=== PATIENT | female | born 1980 | race Caucasian/White ===

== ENCOUNTER 2022-03-02 20:28 | Emergency (ER) | payer MEDICAID ==
[~2022-03-02] VITALS: Ht 147.3 cm; Wt 45.4 kg
[2022-03-02 21:15] LABS: BILIRUBIN,URINE NEGATIVE (NEGATIVE); CLARITY,URINE CLEAR; COLOR,URINE YELLOW; GLUCOSE, URINE (UA) NEGATIVE (NEGATIVE); KETONES,URINE NEGATIVE (NEGATIVE); LEUKOCYTE ESTERASE ,URINE NEGATIVE (NEGATIVE); NITRITE,URINE POSITIVE (NEGATIVE); PROTEIN,URINE NEGATIVE (NEGATIVE)
[2022-03-02 21:20] LABS: BACTERIA,URINE LARGE /HPF; SQUAMOUS EPITHELIAL CELL,UR 0-2 /HPF; WBC,URINE RARE /HPF
[2022-03-02] MEDS ORDERED: ONDA4TAB11 PO (21:28)
[2022-03-02] MEDS ORDERED: CEFD300C3 PO (21:28)
[2022-03-02] MEDS ORDERED: ONDANSETRON 4 MG (ZOFRAN) ORAL DISSOLVE TAB PO STA (21:29)
--- NOTE | 2022-03-02 21:29 | ED GI ---
General Chief Complaint: Abdominal/GI Problems Stated Complaint: ABD PAIN/CRAMPING Source of Information: Patient Exam Limitations: No Limitations History of Present Illness Date Seen by Provider: Mar 02, 2022 Time Seen by Provider: 20:31 Initial Comments 41-year-old female with no pertinent past medical history coming in due to suprapubic discomfort, dysuria, and foul-smelling urine.'s been going on for roughly 1 week. She says she has never had anything like this happen before. The pain is mild, intermittent, worse with urination. Better when she took ibuprofen earlier. She is otherwise denying any fever, chest pain, shortness of breath, diarrhea, vomiting, or any other concerns Allergies and Home Medications Allergies Coded Allergies: diphenhydramine (Unverified Adverse Reaction, Unknown, 03/02/22) Patient Home Medication List Home Medication List Reviewed: Yes Cefdinir (Cefdinir) 300 Mg Capsule, 300 MG PO BID Prescribed by: MACK WORRELL on 03/02/222127 Ondansetron (Ondansetron Odt) 4 Mg Tab.rapdis, 4 MG PO Q6H PRN for NAUSEA-1ST LINE Prescribed by: MACK WORRELL on 03/02/222127 Review of Systems Review of Systems Constitutional: No chills EENTM: No Blurred Vision Respiratory: Denies Cough Gastrointestinal: Abdominal Pain Genitourinary: Burning Musculoskeletal: no symptoms reported Skin: no symptoms reported Psychiatric/Neurological: No Symptoms Reported Endocrine: No Symptoms Reported Hematologic/Lymphatic: No Symptoms Reported All Other Systems Reviewed Negative Unless Noted: Yes Past Czycmzs-Bfjyqo-Bkncco Hx Patient Social History Alcohol Use?: Yes Past Medical History Surgeries: No Physical Exam Vital Signs Capillary Refill : Height/Weight/BMI Height: '" Weight: lbs. oz. kg; BMI Method: General Appearance: WD/WN, no apparent distress HEENT: PERRL/EOMI, normal ENT inspection, pharynx normal Neck: non-tender, full range of motion, supple, normal inspection Respiratory: chest non-tender, lungs clear, normal breath sounds, no respi ratory distress, no accessory muscle use Cardiovascular: regular rate, rhythm, no edema, no murmur Gastrointestinal: normal bowel sounds, non tender, soft; No distended, No guarding, No rebound Extremities: normal range of motion, non-tender, normal inspection, no pedal edema, no calf tenderness, normal capillary refill Back: normal inspection, no CVA tenderness Neurologic/Psychiatric: no motor/sensory deficits, alert, normal mood/affect Skin: normal color, warm/dry Lymphatic: no adenopathy Progress/Results/Core Measures Results/Orders Lab Results Laboratory Tests Test 03/02/22 20:51 Range/Units Urine Color YELLOW Urine Clarity CLEAR Urine pH 6.0 5-9 Urine Specific Anderson <=1.005 1.016-1.022 Urine Protein NEGATIVE NEGATIVE Urine Glucose (UA) NEGATIVE NEGATIVE Urine Ketones NEGATIVE NEGATIVE Urine Nitrite POSITIVE H NEGATIVE Urine Bilirubin NEGATIVE NEGATIVE Urine Urobilinogen 0.2 < = 1.0 MG/DL Urine Leukocyte Esterase NEGATIVE NEGATIVE Urine RBC (Auto) NEGATIVE NEGATIVE Urine RBC NONE /HPF Urine WBC RARE /HPF Urine Squamous Epithelial Cells 0-2 /HPF Urine Crystals NONE /LPF Urine Bacteria LARGE H /HPF Urine Casts NONE /LPF Urine Mucus NEGATIVE /LPF Urine Culture Indicated YES My Orders Orders - MACK WORRELL MD Ua Culture If Indicated (03/02/22 21:07) Urine Bedside (03/02/22 21:07) Urine Culture (03/02/22 20:51) Progress Progress Note : Progress Note 41-year-old female coming in due to dysuria, suprapubic discomfort, and possible urine. ABCs were intact and vitals were stable on presentation. Physical exam reassuring including no significant abdominal tenderness. Labs significant for negative test and urinalysis concerning for infection. While her symptoms does fit a cystitis type picture. We will send her home with some antibiotics. She was discharged in stable condition with strict return precautions. Repeat abdominal exam prior to discharge again was reassuring. Departure Impression Primary Impression: Cystitis Disposition: HOME, SELF-CARE Condition: Stable Departure-Patient Inst. Decision time for Depature: 21:[address]: [facility] [place],LOCAL PHYSICIAN (PCP) Primary Care Physician Patient Instructions: Urinary Tract Infections in Adults Add. Discharge Instructions: You have a urinary tract infection going back to your bladder which is what is causing your abdominal pain and symptoms. He will take antibiotics for the next week. You can take ibuprofen and/or Tylenol for pain. Do not take Tylenol if you are drinking alcohol however. If you are not feeling a lot better in the next 5 days then call [facility] to schedule an appointment. You can always come back to the ER if you have concerns. Scripts Ondansetron (Ondansetron Odt) 4 Mg Tab.rapdis 4 MG PO Q6H PRN for NAUSEA-1ST LINE for 5 Days, #20 TAB Prov: MACK WORRELL MD 03/02/22 Cefdinir (Cefdinir) 300 Mg Capsule 300 MG PO BID for 7 Days, #14 CAP 0 Refills Prov: MACK WORRELL MD 03/02/22 MACK WORRELL MD Mar 02, 2022 21:29
[2022-03-02] MEDS ORDERED: HYOSCYAMINE 0.125 MG (LEVSIN) TAB PO ONE (21:30)
[2022-03-02] MEDS ORDERED: CEFDINIR 300 MG (OMNICEF) CAP PO ONE (21:30)
[2022-03-02 21:37] VITALS: BP 109/78
== END 2022-03-02 21:37 | disposition home or self-care (01) ==
LOC: ER FS 20:29
DX: N30.90 Cystitis, unspecified without hematuria (principal); Z32.02 Encounter for pregnancy test, result negative
CPT/HCPCS: 81000; 84703; 87088; 99283

== ENCOUNTER 2022-03-25 04:14 | Emergency (ER) | payer MEDICAID ==
[~2022-03-25 04:14] MED LIST: CEFD300C3 PO; ONDA4TAB11 PO
--- NOTE | 2022-03-25 04:47 | ED Psychosocial ---
General Chief Complaint: Overdose Stated Complaint: POSS OVERDOSE Nursing Triage Note: Pt brought in by after taking more Olanzapine than prescribed. According to her , there were 12 pills in the bottle before bed last night and only 5 left in the bottle now. Pt states she took the extra pills throughout the night because she was unable to sleep and thought the medicine would help her. Source: patient, spouse Exam Limitations: no limitations (MACK PRADO MD) History of Present Illness Date Seen by Provider: Mar 25, 2022 Time Seen by Provider: 04:21 Initial Comments 41-year-old female that was recently seen in the emergency department for vague somatic issues as well as suicidal thoughts coming in due to potential overdose. She filled a prescription for olanzapine 5 mg on the night of March 23. She said that she has been having difficulty sleeping so she been taking roughly 2 at a time every hour she feels like. There are 5 olanzepine left meaning there are 25 missing over the past 24 hours roughly. She finally alerted her si gnificant other that she was concerned that she could have potentially overdosed. She has had her intention was never to harm herself, and she thought it would be okay to take this to try to sleep. She says she has no suicidal thoughts at this time, and does not want to be screened for any psychiatric illness. She says it was completely accidental. She says she did have some al cohol last night, about a half pint of liquor. It is very typical for her to drink half to 1 pint and a day. She said she had 4 aspirin over the course of the past 24 hours for typical chronic pain. She says she is taken no other medications. The only symptom she is reporting is she finally feels tired, however she is not sure if that is just because it is 4 in the morning. (MACK PRADO MD) Allergies and Home Medications Allergies Coded Allergies: diphenhydramine (Unverified Adverse Reaction, Unknown, 03/02/22) Patient Home Medication List Home Medication List Reviewed: Yes (MACK PRADO MD) Cefdinir (Cefdinir) 300 Mg Capsule, 300 MG PO BID Prescribed by: MACK PRADO on 03/02/222127 Ondansetron (Ondansetron Odt) 4 Mg Tab.rapdis, 4 MG PO Q6H PRN for NAUSEA-1ST LINE Prescribed by: MACK PRADO on 03/02/222127 Review of Systems Constitutional: No chills, No fever EENTM: No blurred vision Respiratory: no symptoms reported Cardiovascular: no symptoms reported Gastrointestinal: no symptoms reported Genitourinary: no symptoms reported Musculoskeletal: no symptoms reported Skin: no symptoms reported Psychiatric/Neurological: Depressed (MACK PRADO MD) All Other Systems Reviewed Negative Unless Noted: Yes (MACK PRADO MD) Past Hxabbeb-Rwejyh-Ihldka Hx Patient Social History Tobacco Use?: Yes Tobacco type used: Cigarettes Smoking Status: Current Everyday Smoker Use of E-Cig and/or Vaping dev: No Substance use?: Yes Substance type: Marijuana Alcohol Use?: No Pt feels they are or have been: No (MACK PRADO MD) Immunizations Up To Date First/Initial COVID19 Vaccinat: UNVACCINATED Second COVID19 Vaccination Efe: UNVACCINATED (MACK PRADO MD) Past Medical History Surgery/Hospitalization HX: HTN, Ovarian cysts Surgeries: No (MACK PRADO MD) Physical Exam Vital Signs - First Documented 03/25/22 04:19 Pulse 86 Resp 16 B/P (MAP) 137/99 (112) Pulse Ox 100 O2 Delivery Room Air (CHHAYA FARFAN MD) Capillary Refill : Less Than 3 Seconds (MACK PRADO MD) Height, Weight, BMI Height: '" Weight: lbs. oz. 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0 g/dL Hematocrit 35 35-52 % Mean Corpuscular Volume 99 80-99 fL Mean Corpuscular Hemoglobin 33 25-34 pg Mean Corpuscular Hemoglobin Concent 33 32-36 g/dL Red Cell Distribution Width 14.0 10.0-14.5 % Platelet Count 208 130-400 10^3/uL Mean Platelet Volume 11.0 9.0-12.2 fL Immature Granulocyte % (Auto) 1 % Neutrophils (%) (Auto) 57 42-75 % Lymphocytes (%) (Auto) 24 12-44 % Monocytes (%) (Auto) 12 0-12 % Eosinophils (%) (Auto) 6 0-10 % Basophils (%) (Auto) 1 0-10 % Neutrophils # (Auto) 3.3 1.8-7.8 10^3/uL Lymphocytes # (Auto) 1.4 1.0-4.0 10^3/uL Monocytes # (Auto) 0.7 0.0-1.0 10^3/uL Eosinophils # (Auto) 0.3 0.0-0.3 10^3/uL Basophils # (Auto) 0.1 0.0-0.1 10^3/uL Immature Granulocyte # (Auto) 0.0 0.0-0.1 10^3/uL Sodium Level 141 135-145 MMOL/L Potassium Level 4.7 3.6-5.0 MMOL/L Chloride Level 104 98-107 MMOL/L Carbon Dioxide Level 25 21-32 MMOL/L Anion Gap 12 5-14 MMOL/L Blood Urea Nitrogen 12 7-18 MG/DL Creatinine 0.56 L 0.60-1.30 MG/DL Estimat Glomerular Filtration Rate 118 BUN/Creatinine Ratio 21 Glucose Level 88 70-105 MG/DL Calcium Level 9.7 8.5-10.1 MG/DL Corrected Calcium 9.5 8.5-10.1 MG/DL Total Bilirubin 0.2 0.1-1.0 MG/DL Aspartate Amino Transf (AST/SGOT) 46 H 5-34 U/L Alanine Aminotransferase (ALT/SGPT) 30 0-55 U/L Alkaline Phosphatase 60 40-136 U/L Total Protein 6.9 6.4-8.2 GM/DL Albumin 4.2 3.2-4.5 GM/DL Serum Test, Qualitative NEGATIVE NEGATIVE Salicylates Level 4.3 L 5.0-20.0 MG/DL Acetaminophen Level < 10 L 10-30 UG/ML Serum Alcohol < 10 <10 MG/DL (CHHAYA FARFAN MD) Vital Signs/I&O 03/25/22 04:19 Pulse 86 Resp 16 B/P (MAP) 137/99 (112) Pulse Ox 100 O2 Delivery Room Air (CHHAYA FARFAN MD) Blood Pressure Mean: 112 Progress Progress Note : Progress Note 41-year-old female with above history coming in after potential overdose with olanzapine. She is taking at least 25 pills that of 5 mg each over the course of 24 hours. She believes she is taking roughly 7 of them over the past 12 hours. Other than her being sleepy, no symptoms. She is alert to voice alone and carries a conversation without difficulty. Neuro exam normal including no clonus and normal reflexes. I contacted poison control and they recommend watching her for roughly 6 hours. If she is alert at 6 hours she can go home if we have no other concerns. They recommend 1 EKG and then just being on the monitor at that point. Initial EKG without any concerns. An IV was placed and basic labs were obtained. They were essentially unremarkable. Detectable but not concerning aspirin level given she took a few. Care will be turned over to the oncoming physician with roughly 3 more hours of monitoring her. She has had no difficulty as of yet. (MACK PRADO MD) Progress Note #1: Time: 07:00 Progress Note I assumed care of the patient from Dr. Prado at shift change. Patient will be monitored until roughly 10 AM and then provided she is still stable and has no other concerns will discharge to home. Stressed importance of taking medi cine only as prescribed and if she feels like she needs additional medicine or stronger medicine following up with her regular provider about that. Progress Note #2: Time: 09:45 Progress Note Patient has been resting and remained stable. She continues to show a normal sinus rhythm on the cardiac telemetry monitoring. Her vital signs otherwise have remained stable. She has awaken to voice easily and interactive with staff and significant other at the bedside. She continues to voice no concerns of self-harm. Stressed importance of taking medications only as prescribed. Encouraged to follow-up with her regular provider about her medications and any adjustments that might be deemed necessary (CHHAYA FARFAN MD) Initial ECG Impression Date: Mar 25, 2022 Initial ECG Impression Time: 04:21 Initial ECG Rate: 81 Initial ECG Rhythm: Normal Sinus Comment Narrow QRS, normal axis, no significant ST changes or T wave abnormalities, QTC 450 (MACK PRADO MD) Departure Impression Primary Impression: Accidental overdose Qualified Codes: T50.901A - Poisoning by unspecified drugs, medicaments and biological substances, accidental (unintentional), initial encounter Disposition: 01 HOME, SELF-CARE Condition: Stable Departure-Patient Inst. Decision time for Depature: 09:45 (CHHAYA FARFAN MD) Referrals: NO,LOCAL PHYSICIAN (PCP) Primary Care Physician [facility] Patient Instructions: Accidental Overdose (DC), Why Taking Your Medicine or Drug as Ordered Is Important Add. Discharge Instructions: Please only take the olanzapine as prescribed. You should only be taking 1 per night. If you feel like you need a stronger dose or a different medicine, call your doctor that prescribed it. If you have any thoughts to hurt yourself or hurt anyone else please either call 911 or come back to the ER. Work/School Note: Work Release Form Date Seen in the Emergency Department: Mar 25, 2022 Return to Work: Mar 26, 2022 Restrictions: No Restrictions MACK PRADO MD Mar 25, 2022 04:47 CHHAYA FARFAN MD Mar 25, 2022 09:46
[2022-03-25 05:35] LABS: BASOPHILS # (AUTO) 0.1 10^3/uL (0.0-0.1); BASOPHILS % (AUTO) 1 % (0-10); EOSINOPHILS # (AUTO) 0.3 10^3/uL (0.0-0.3); EOSINOPHILS % (AUTO) 6 % (0-10); HEMATOCRIT 35 % (35-52); HEMOGLOBIN 11.7 g/dL (11.5-16.0); LYMPHOCYTES # (AUTO) 1.4 10^3/uL (1.0-4.0); LYMPHOCYTES % (AUTO) 24 % (12-44); MEAN CORPUSCULAR HEMOGLOBIN 33 pg (25-34); MEAN CORPUSCULAR HGB CONC 33 g/dL (32-36); MEAN CORPUSCULAR VOLUME 99 fL (80-99); MONOCYTES # (AUTO) 0.7 10^3/uL (0.0-1.0); MONOCYTES % (AUTO) 12 % (0-12); NEUTROPHILS # (AUTO) 3.3 10^3/uL (1.8-7.8); NEUTROPHILS % (AUTO) 57 % (42-75); PLATELET COUNT 208 10^3/uL (130-400); WHITE BLOOD COUNT 5.8 10^3/uL (4.3-11.0)
[2022-03-25 05:46] LABS: POTASSIUM 4.7 MMOL/L (3.6-5.0); SODIUM 141 MMOL/L (135-145)
[2022-03-25 05:47] LABS: CHLORIDE 104 MMOL/L (98-107)
[2022-03-25 05:53] LABS: BILIRUBIN,TOTAL 0.2 MG/DL (0.1-1.0); BUN/CREATININE RATIO 21; CALCIUM 9.7 MG/DL (8.5-10.1); CARBON DIOXIDE 25 MMOL/L (21-32); CREATININE SERUM 0.56 MG/DL (0.60-1.30); GFR ESTIMATED 118; GLUCOSE 88 MG/DL (70-105)
[2022-03-25 05:54] LABS: ACETAMINOPHEN < 10 UG/ML (10-30); ALANINE AMINOTRANSFERASE 30 U/L (0-55); ALBUMIN 4.2 GM/DL (3.2-4.5); ALKALINE PHOSPHATASE 60 U/L (40-136); SALICYLATE 4.3 MG/DL (5.0-20.0); TOTAL PROTEIN 6.9 GM/DL (6.4-8.2)
[2022-03-25 10:06] VITALS: BP 126/71
== END 2022-03-25 10:06 | disposition home or self-care (01) ==
LOC: EDUNIT# 04:14 → ER FS 04:16
DX: T43.591A Poisoning by other antipsychotics and neuroleptics, accidental (unintentional), initial encounter (principal); F17.210 Nicotine dependence, cigarettes, uncomplicated
CPT/HCPCS: 36415; 80053; 84703; 85025; 93005; 93041; 99284; G0480 ×3; 80320; 80329

== ENCOUNTER 2022-08-11 18:37 | Inpatient (IN) | payer MEDICAID ==
[~2022-08-11] VITALS: Ht 157 cm; Wt 50.4 kg
[2022-08-11] MEDS ORDERED: LACTATED RINGERS 1,000 ML IV ONE ×3 (18:45→19:00)
[2022-08-11] MEDS ORDERED: MIDAZOLAM 10 MG/2 ML (VERSED) VIAL ONE (18:45)
[2022-08-11] MEDS ORDERED: MIDAZOLAM 5 MG/5 ML (VERSED) VIAL IVP ONE (18:45)
[2022-08-11] MEDS ORDERED: MIDAZOLAM 10 MG/2 ML (VERSED) VIAL IVP ONE ×2 (19:00→19:30)
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
[2022-08-11 19:07] LABS: BASOPHILS % (AUTO) 0 % (0-10); EOSINOPHILS % (AUTO) 0 % (0-10); HEMATOCRIT 30 % (35-52); HEMOGLOBIN 9.8 g/dL (11.5-16.0); LYMPHOCYTES # (AUTO) 1.1 10^3/uL (1.0-4.0); LYMPHOCYTES % (AUTO) 13 % (12-44); MEAN CORPUSCULAR HEMOGLOBIN 32 pg (25-34); MEAN CORPUSCULAR HGB CONC 33 g/dL (32-36); MEAN CORPUSCULAR VOLUME 96 fL (80-99); MEAN PLATELET VOLUME 10.1 fL (9.0-12.2); MONOCYTES # (AUTO) 0.5 10^3/uL (0.0-1.0); MONOCYTES % (AUTO) 6 % (0-12); NEUTROPHILS # (AUTO) 6.9 10^3/uL (1.8-7.8); NEUTROPHILS % (AUTO) 80 % (42-75); PLATELET COUNT 154 10^3/uL (130-400); WHITE BLOOD COUNT 8.6 10^3/uL (4.3-11.0)
[2022-08-11 19:12] LABS: BILIRUBIN,URINE NEGATIVE (NEGATIVE); CLARITY,URINE CLEAR; COLOR,URINE YELLOW; GLUCOSE, URINE (UA) TRACE (NEGATIVE); HCG,QUALITATIVE URINE NEGATIVE (NEGATIVE); KETONES,URINE NEGATIVE (NEGATIVE); LEUKOCYTE ESTERASE ,URINE NEGATIVE (NEGATIVE); NITRITE,URINE POSITIVE (NEGATIVE); PH,URINE 5.5 (5-9); PROTEIN,URINE NEGATIVE (NEGATIVE)
[2022-08-11] MEDS ORDERED: WATER (STERILE) FOR INJ 10 ML BTL INJ SCH (19:15)
[2022-08-11] MEDS ORDERED: ZIPRASIDONE 20 MG INJ (GEODON) VIAL IM ONE (19:15)
[2022-08-11 19:20] LABS: BACTERIA,URINE TRACE /HPF; HYALINE CASTS, URINE 0-2 /LPF; SQUAMOUS EPITHELIAL CELL,UR RARE /HPF
[2022-08-11 19:24] LABS: AMPHETAMINE SCREEN, URINE NEGATIVE (NEGATIVE); BARBITURATE SCREEN URINE NEGATIVE (NEGATIVE); BENZODIAZEPINES SCREEN URINE POSITIVE (NEGATIVE); CANNABINOID SCREEN, URINE POSITIVE (NEGATIVE); COCAINE SCREEN URINE NEGATIVE (NEGATIVE); METHADONE STAT NEGATIVE (NEGATIVE); OPIATE SCREEN URINE NEGATIVE (NEGATIVE); OXYCODONE STAT NEGATIVE (NEGATIVE); PROPOXYPHENE STAT NEGATIVE (NEGATIVE); TRICYCLIC ANTIDEPRESSANTS SCRE NEGATIVE (NEGATIVE)
[2022-08-11 19:26] LABS: BUN/CREATININE RATIO 10; CALCIUM 7.4 MG/DL (8.5-10.1); CARBON DIOXIDE 14 MMOL/L (21-32); CHLORIDE 104 MMOL/L (98-107); CREATININE SERUM 0.58 MG/DL (0.60-1.30); GFR ESTIMATED 117; GLUCOSE 190 MG/DL (70-105); POTASSIUM 3.5 MMOL/L (3.6-5.0); SODIUM 135 MMOL/L (135-145)
[2022-08-11 19:27] LABS: ACETAMINOPHEN < 10 UG/ML (10-30); ALANINE AMINOTRANSFERASE 9 U/L (0-55); ALBUMIN 3.4 GM/DL (3.2-4.5); ALKALINE PHOSPHATASE 50 U/L (40-136); BILIRUBIN,TOTAL 0.2 MG/DL (0.1-1.0); SALICYLATE < 0.3 MG/DL (5.0-20.0); TOTAL PROTEIN 5.7 GM/DL (6.4-8.2)
[2022-08-11] MEDS ORDERED: POTASSIUM CL 10MEQ/50ML IVPB 50 ML IV ONE (19:45)
[2022-08-11] MEDS ORDERED: MAGNESIUM 1 GM/100 ML IVPB 100 ML IV ONE (19:45)
[2022-08-12] MEDS ORDERED: ZIPRASIDONE 20 MG INJ (GEODON) VIAL IM PRN (01:00)
[2022-08-12] MEDS ORDERED: DexMEDEtomidine 250 ML DRIP 250 ML IV SCH (01:00)
[2022-08-12] MEDS ORDERED: ONDANSETRON 4 MG/2 ML (SDV) Z0FRAN IV PRN ×2 (01:00→01:15)
[2022-08-12] MEDS ORDERED: LORazepam 1 MG (ATIVAN) TAB PO PRN (01:15)
[2022-08-12] MEDS ORDERED: 1/2 NS IV SOLUTION 1,000 ML IV PRN (01:15)
[2022-08-12] MEDS ORDERED: ANTACID SUSP 30 ML UDC (MYLANTA) PO PRN (01:15)
[2022-08-12] MEDS ORDERED: SENNA W/DOCUSATE (SENOKOT S) TABLET PO PRN (01:15)
[2022-08-12] MEDS ORDERED: LORazepam INJ 2 MG/ML (ATIVAN) VIAL IM/IV PRN (01:15)
[2022-08-12] MEDS ORDERED: D5 1/2 NS 1000 ML IV SOLUTION 1,000 ML IV PRN (01:15)
[2022-08-12] MEDS ORDERED: ONDANSETRON 4 MG (ZOFRAN) ORAL DISSOLVE TAB SL PRN (01:15)
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
[2022-08-12] MEDS: LACTATED RINGERS 1,000 ML IV SCH ×3 (01:29→18:57)
[2022-08-12] MEDS: inSUlin ASPART (NovoLOG) 1 UNIT/0.01 ML (CHARGE PER UNIT) SC SCH ×4 (01:30→18:57)
[2022-08-12] MEDS: LORazepam INJ 2 MG/ML (ATIVAN) VIAL IV PRN ×8 (03:20→20:27)
[2022-08-12 04:42] LABS: BASOPHILS % (AUTO) 1 % (0-10); EOSINOPHILS # (AUTO) 0.1 10^3/uL (0.0-0.3); EOSINOPHILS % (AUTO) 1 % (0-10); HEMATOCRIT 29 % (35-52); HEMOGLOBIN 9.5 g/dL (11.5-16.0); LYMPHOCYTES # (AUTO) 1.6 10^3/uL (1.0-4.0); LYMPHOCYTES % (AUTO) 28 % (12-44); MEAN CORPUSCULAR HEMOGLOBIN 31 pg (25-34); MEAN CORPUSCULAR HGB CONC 33 g/dL (32-36); MEAN CORPUSCULAR VOLUME 94 fL (80-99); MEAN PLATELET VOLUME 9.7 fL (9.0-12.2); MONOCYTES # (AUTO) 0.5 10^3/uL (0.0-1.0); MONOCYTES % (AUTO) 8 % (0-12); NEUTROPHILS # (AUTO) 3.5 10^3/uL (1.8-7.8); NEUTROPHILS % (AUTO) 62 % (42-75); PLATELET COUNT 151 10^3/uL (130-400); WHITE BLOOD COUNT 5.7 10^3/uL (4.3-11.0)
[2022-08-12 04:56] LABS: ALBUMIN 3.1 GM/DL (3.2-4.5); POTASSIUM 3.5 MMOL/L (3.6-5.0)
[2022-08-12 04:59] LABS: TOTAL PROTEIN 5.3 GM/DL (6.4-8.2)
[2022-08-12 05:00] LABS: BILIRUBIN,TOTAL 0.6 MG/DL (0.1-1.0)
[2022-08-12 05:02] LABS: CREATININE SERUM 0.57 MG/DL (0.60-1.30); PHOSPHORUS 1.8 MG/DL (2.3-4.7)
[2022-08-12 05:05] LABS: MAGNESIUM 1.7 MG/DL (1.6-2.4)
[2022-08-12] MEDS ORDERED: NS IV 500 ML 500 ML IV PRN (05:30)
[2022-08-12] MEDS: KCL 20 MEQ TAB (K-DUR) PO SCH (06:04)
[2022-08-12] MEDS: MAGNESIUM 1 GM/100 ML IVPB 100 ML IV SCH (06:06)
[2022-08-12] MEDS: POTASSIUM CL 10MEQ/50ML IVPB 50 ML IV SCH (06:06)
[2022-08-12] MEDS: THIAMINE INJECTION 100 MG, FOLIC ACID INJECTION 1 MG, MAGNESIUM SULFATE 2 GM, VITAMIN M... IV SCH ×5 (08:47)
[2022-08-12] MEDS ORDERED: HYDR50TA76 PO (13:02)
[2022-08-12] MEDS ORDERED: FLUO20CA48 PO (13:02)
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
[2022-08-13 05:12] LABS: BASOPHILS % (AUTO) 1 % (0-10); EOSINOPHILS # (AUTO) 0.1 10^3/uL (0.0-0.3); EOSINOPHILS % (AUTO) 1 % (0-10); HEMATOCRIT 28 % (35-52); HEMOGLOBIN 9.1 g/dL (11.5-16.0); LYMPHOCYTES # (AUTO) 1.9 10^3/uL (1.0-4.0); LYMPHOCYTES % (AUTO) 31 % (12-44); MEAN CORPUSCULAR HEMOGLOBIN 31 pg (25-34); MEAN CORPUSCULAR HGB CONC 32 g/dL (32-36); MEAN CORPUSCULAR VOLUME 96 fL (80-99); MEAN PLATELET VOLUME 10.2 fL (9.0-12.2); MONOCYTES # (AUTO) 0.5 10^3/uL (0.0-1.0); MONOCYTES % (AUTO) 8 % (0-12); NEUTROPHILS # (AUTO) 3.6 10^3/uL (1.8-7.8); NEUTROPHILS % (AUTO) 59 % (42-75); PLATELET COUNT 120 10^3/uL (130-400); WHITE BLOOD COUNT 6.1 10^3/uL (4.3-11.0)
[2022-08-13 05:21] LABS: ALBUMIN 2.9 GM/DL (3.2-4.5)
[2022-08-13 05:22] LABS: POTASSIUM 4.2 MMOL/L (3.6-5.0)
[2022-08-13 05:23] LABS: CALCIUM 8.2 MG/DL (8.5-10.1)
[2022-08-13 05:24] LABS: TOTAL PROTEIN 5.1 GM/DL (6.4-8.2)
[2022-08-13 05:26] LABS: BILIRUBIN,TOTAL 0.4 MG/DL (0.1-1.0)
[2022-08-13 05:27] LABS: PHOSPHORUS 2.7 MG/DL (2.3-4.7)
[2022-08-13 05:28] LABS: CREATININE SERUM 0.68 MG/DL (0.60-1.30)
[2022-08-13 05:30] LABS: MAGNESIUM 1.8 MG/DL (1.6-2.4)
[2022-08-13] MEDS: LACTATED RINGERS 1,000 ML IV SCH ×2 (06:05→06:13)
[2022-08-13] MEDS: inSUlin ASPART (NovoLOG) 1 UNIT/0.01 ML (CHARGE PER UNIT) SC SCH ×4 (06:06→16:20)
[2022-08-13] MEDS: POTASSIUM CL 10MEQ/50ML IVPB 50 ML IV SCH (06:07)
[2022-08-13] MEDS: MAGNESIUM 1 GM/100 ML IVPB 100 ML IV SCH (06:08)
[2022-08-13] MEDS: KCL 20 MEQ TAB (K-DUR) PO SCH (06:12)
[2022-08-13] MEDS: NITROFURANTOIN 100 MG (MACROBID) CAPSULE PO SCH ×2 (09:05→20:22)
[2022-08-13] MEDS: NICOTINE 21 MG (NICODERM) PATCH TD SCH (09:05)
--- NOTE | 2022-08-13 09:40 | Tele-ICU Progress Note ---
Subjective Date Seen by a Provider: Aug 13, 2022 Time Seen by a Provider: 09:40 Subjective/Events-last exam (Tele-ICU Physician , Progress Note ) Available chart/ vitals / labs / Images reviewed Video assessment done using teleICU camera, rest of exam as per RN Discussed with RN Events overnight : Afebrile hemodynamically stable Respiratory - ra I/O = + Drips: Pressors- no A/P Acute psychosis Schizophrenia -Antipsychotics as per psych / pcp Atarax overdose - stable Alcohol abuse -No evidence of withdrawalm, cont vitanmina UTI - anx po thrombocytopenia - mild - was not hiveb heparin - follow as per PCP Anemia - stable - w/up as per PCP Lines : , (Central Line Necessity Reviewed) Landis: OG: Nutrition: Analgesia: Anxiety/ delirium VTE Prophylaxis: ambulate Stress Ulcer Prophylaxis: po Plans in collaboration with bedside consultants and IM MDs. Discussed with RN to reach out if any questions or concerns A total of 10 minutes of critical care time was devoted to this patient today, required to treat and/or prevent further deterioration of critical care conditi on ( as above ) . Sepsis Event Evaluation Height, Weight, BMI Height: '" Weight: lbs. oz. kg; 20.44 BMI Method: Exam Exam Patient acknowledged, consented, and participated in this virtual visit which was conducted using real time audio/video Vital Signs Date Time Temp Pulse Resp B/P (MAP) Pulse Ox O2 Delivery O2 Flow Rate FiO2 08/13/22 09:00 53 18 144/60 (88) 95 Room Air 08/13/22 08:19 98 Room Air 08/13/22 08:00 36.7 08/13/22 08:00 73 6 111/82 (92) 100 Room Air 08/13/22 07:00 67 08/13/22 07:00 86 11 113/70 (84) 100 Room Air 08/13/22 06:00 77 12 104/65 (78) 97 Room Air 08/13/22 05:00 73 19 107/77 (87) 100 Room Air 08/13/22 04:00 Room Air 08/13/22 04:00 79 19 103/66 (78) 99 Room Air 08/13/22 03:00 94 12 100/61 (74) 97 Room Air 08/13/22 02:00 77 17 118/79 (92) 100 Room Air 08/13/22 01:00 83 08/13/22 01:00 83 17 99/66 (77) 98 Room Air 08/13/22 00:00 Room Air 08/13/22 00:00 81 12 107/73 (84) 99 Room Air 08/12/22 23:00 83 18 96/62 (73) 100 Room Air 08/12/22 22:00 84 12 96/63 (74) 99 Room Air 08/12/22 21:00 90 12 91/60 (70) 98 Room Air 08/12/22 20:00 Room Air 08/12/22 20:00 109 16 122/66 (84) 100 Room Air 08/12/22 19:59 36.8 08/12/22 19:00 107 08/12/22 19:00 107 14 124/96 (105) 100 Room Air 08/12/22 18:00 111 17 129/82 (98) 92 Room Air 08/12/22 17:00 84 11 117/84 (95) 99 Room Air 08/12/22 16:00 35.9 08/12/22 16:00 78 10 101/62 (75) Room Air 08/12/22 15:00 92 15 84/52 (63) Room Air 08/12/22 14:00 103 13 110/71 (84) 99 Room Air 08/12/22 13:00 102 9 111/72 (85) 99 Room Air 08/12/22 12:17 100 08/12/22 12:00 36.8 08/12/22 12:00 101 7 118/80 (93) 98 Room Air 08/12/22 11:00 101 8 124/77 (93) 99 Room Air 08/12/22 10:00 101 11 107/71 (83) 99 Room Air I & O 08/13/22 07:00 Intake Total 2300 ml Output Total 2600 ml Balance -300 ml Height & Weight Height: '" Weight: lbs. oz. kg; 20.44 BMI Method: General Appearance: No Apparent Distress, WD/WN, Anxious Respiratory: Lungs Clear, No Respiratory Distress Cardiovascular: Regular Rate, Rhythm, No Murmur Capillary Refill: Less Than 3 Seconds Peripheral Pulses: 2+ Radial Pulses (R), 2+ Radial Pulses (L) Gastrointestinal: normal bowel sounds, non tender, soft, no organomegaly Extremity: Normal Inspection, No Pedal Edema Neurologic/Psychiatric: Alert, Disoriented, Other (paranoid delusions) Skin: Normal Color, Warm/Dry Results Lab Laboratory Tests 08/11/22 18:44 08/12/22 04:15 08/13/22 04:50 Assessment/Plan Assessment/Plan 1 MARITZA ROJO MD Aug 13, 2022 09:40
[2022-08-13] MEDS: THIAMINE INJECTION 100 MG, FOLIC ACID INJECTION 1 MG, MAGNESIUM SULFATE 2 GM, VITAMIN M... IV SCH ×5 (09:41)
--- NOTE | 2022-08-13 16:00 | Progress Note - Hospitalist ---
Subjective HPI/CC On Admission Date Seen by Provider: Aug 13, 2022 Time Seen by Provider: 09:45 Cassidy Martino is a 41 year old female with history of schizophrenia who presented with psychosis. She says she has a "bug in my ear". She says it is telling her things. It is not commanding her to do things though. She also thinks the [place] is trying to take her family to [place]. She thinks someone is going to force them into pornography. She has no pain. She is not short of breath. She is otherwise in her normal state of health. She tried to harm her and the EMS officers. She also may have overdosed on Atarax. Subjective/Events-last exam She continues to have paranoid delusions. She denies pain. She has no other complaints. Objective Exam Vital Signs Vital Signs Date Time Temp Pulse Resp B/P (MAP) Pulse Ox O2 Delivery O2 Flow Rate FiO2 08/13/22 12:25 72 16 119/89 (99) 100 Room Air 08/13/22 11:05 36.6 Capillary Refill : Less Than 3 Seconds General Appearance: No Apparent Distress, WD/WN Respiratory: No Accessory Muscle Use, No Respiratory Distress Cardiovascular: Regular Rate, Rhythm, No Edema Gastrointestinal: No Distended Neurologic/Psychiatric: Alert, Disoriented, Other (paranoid delusions, auditory hallucinations) Skin: Normal Color, Warm/Dry Results/Procedures Lab Laboratory Tests 08/13/22 04:50 Patient resulted labs reviewed. Assessment/Plan Assessment and Plan Assess & Plan/Chief Complaint Acute psychosis Schizophrenia Antipsychotics as needed Resume home meds SW following Planning for transfer involuntary to inpatient psychiatry once bed available Atarax overdose Alcohol abuse Stable No evidence of withdrawal Diagnosis/Problems Diagnosis/Problems (1) Schizophrenia Status: Acute Qualifiers: Schizophrenia type: paranoid schizophrenia Qualified Codes: F20.0 - Paranoid schizophrenia (2) Psychosis Status: Acute Qualifiers: Psychosis type: unspecified psychosis type Qualified Codes: F29 - Unspecified psychosis not due to a substance or known physiological condition (3) Drug overdose Status: Acute Qualifiers: Encounter type: initial encounter Injury intent: undetermined intent Qualified Codes: T50.904A - Poisoning by unspecified drugs, medicaments and biological substances, undetermined, initial encounter (4) Alcohol abuse Status: Chronic TONIE GASTELUM MD Aug 13, 2022 16:00
[2022-08-13] MEDS ORDERED: ACETAMINOPHEN 325 MG TABLET ONE (18:14)
[2022-08-13] MEDS: ACETAMINOPHEN 325 MG TABLET PO PRN ×2 (18:16→22:33)
[2022-08-13] MEDS: OLANZapine 5 MG ODT (ZyPREXA ZYDIS) PO SCH (20:22)
[2022-08-13] MEDS ORDERED: OLANZapine 5 MG (ZyPREXA) TAB PO SCH (21:00)
[2022-08-14] MEDS: MAGNESIUM 1 GM/100 ML IVPB 100 ML IV SCH (06:52)
[2022-08-14] MEDS: POTASSIUM CL 10MEQ/50ML IVPB 50 ML IV SCH (06:52)
[2022-08-14] MEDS: KCL 20 MEQ TAB (K-DUR) PO SCH (06:52)
[2022-08-14] MEDS: NICOTINE PATCH REMOVAL TP SCH (08:31)
[2022-08-14] MEDS: NITROFURANTOIN 100 MG (MACROBID) CAPSULE PO SCH ×2 (08:31→21:13)
[2022-08-14] MEDS: NICOTINE 21 MG (NICODERM) PATCH TD SCH (08:31)
--- NOTE | 2022-08-14 08:45 | Tele-ICU Progress Note ---
Subjective Date Seen by a Provider: Aug 14, 2022 Subjective/Events-last exam This virtual visit was conducted using real time audio/video. Thank you for asking us to see this patient for alc withdrawal, psychosis, polysub. abuse. Recent events: Now conversational PE: VSS. O2 sat 97% on RA. HEENT: No obvious masses, adenopathy or JVD. Chest: clear to auscultation. CV: RRR S1 S2 No murmur or added sounds. Abd: Non-tender. Bowel sounds Y. : Unremarkable. 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 No obvious focal findings. Extremities: No edema. Capillary refill < 3 seconds. Skin: unremarkable. Results: Elevated BG 134. Decreased Hb 9.1. Available chart/ vitals / labs / images reviewed. Video assessment done using teleICU camera, rest of exam as per RN. A/P: Critical Care: critically ill patient. Cont. Geodon, Ativan, Jerri., abx, Zyprexa, Nicoderm. Awaiting Psych bed. Discussed with RN Eleanor. Asked RN to reach out to eICU if any questions or concerns later. Time spent with patient/coordination of care with other health professionals (mins): 10 Sepsis Event Evaluation Height, Weight, BMI Height: '" Weight: lbs. oz. kg; 20.44 BMI Method: Exam Exam Patient acknowledged, consented, and participated in this virtual visit which was conducted using real time audio/video Vital Signs Date Time Temp Pulse Resp B/P (MAP) Pulse Ox O2 Delivery O2 Flow Rate FiO2 08/14/22 05:54 56 16 113/69 (92) 98 Room Air 08/14/22 04:00 Room Air 08/14/22 04:00 36.6 08/14/22 00:00 36.2 84 14 110/64 (79) 100 Room Air 08/14/22 00:00 Room Air 08/13/22 20:00 Room Air 08/13/22 19:51 36.4 72 18 108/68 (86) 99 Room Air 08/13/22 16:11 36.2 67 16 114/81 (92) 97 Room Air 08/13/22 16:09 114/81 (87) 08/13/22 16:00 Room Air 08/13/22 12:25 72 16 119/89 (99) 100 Room Air 08/13/22 12:00 Room Air 08/13/22 11:05 36.6 08/13/22 09:00 53 18 144/60 (88) 95 Room Air I & O 08/14/22 06:59 Intake Total 2195.2 ml Output Total 2725 ml Balance -529.8 ml Height & Weight Height: '" Weight: lbs. oz. kg; 20.44 BMI Method: General Appearance: No Apparent Distress, WD/WN Respiratory: No Accessory Muscle Use, No Respiratory Distress Cardiovascular: Regular Rate, Rhythm, No Edema Capillary Refill: Less Than 3 Seconds Peripheral Pulses: 2+ Radial Pulses (R), 2+ Radial Pulses (L) Gastrointestinal: normal bowel sounds, non tender, soft, no organomegaly Extremity: Normal Inspection, No Pedal Edema Neurologic/Psychiatric: Alert, Disoriented, Other (paranoid delusions, auditory hallucinations) Skin: Normal Color, Warm/Dry Results Lab Laboratory Tests 08/13/22 04:50 Assessment/Plan Assessment/Plan See free text. Critical Care: Critically Ill Patient YUNG HENNESSY MD Aug 14, 2022 08:45
[2022-08-14] MEDS: THIAMINE INJECTION 100 MG, FOLIC ACID INJECTION 1 MG, MAGNESIUM SULFATE 2 GM, VITAMIN M... IV SCH ×5 (08:48)
[2022-08-14 14:47] VITALS: BP 158/83
[2022-08-14 15:45] VITALS: BP 139/90
--- NOTE | 2022-08-14 18:34 | Progress Note - Hospitalist ---
Subjective HPI/CC On Admission Date Seen by Provider: Aug 14, 2022 Time Seen by Provider: 10:00 Cassidy Martino is a 41 year old female with history of schizophrenia who presented with psychosis. She says she has a "bug in my ear". She says it is telling her things. It is not commanding her to do things though. She also thinks the [place] is trying to take her family to [place]. She thinks someone is going to force them into pornography. She has no pain. She is not short of breath. She is otherwise in her normal state of health. She tried to harm her and the EMS officers. She also may have overdosed on Atarax. Subjective/Events-last exam She reports that the auditory hallucinations are improving. She says this has happened in the past when she has stopped taking her medications. She has no o ther complaints. Objective Exam Vital Signs Vital Signs Date Time Temp Pulse Resp B/P (MAP) Pulse Ox O2 Delivery O2 Flow Rate FiO2 08/14/22 15:45 36.6 60 18 139/90 (106) 100 Room Air Capillary Refill : Less Than 3 Seconds General Appearance: No Apparent Distress, WD/WN Respiratory: Lungs Clear, No Respiratory Distress Cardiovascular: Regular Rate, Rhythm, No Murmur Gastrointestinal: Normal Bowel Sounds, Soft Extremity: Normal Inspection, No Pedal Edema Neurologic/Psychiatric: Alert, Normal Mood/Affect Skin: Normal Color, Warm/Dry Results/Procedures Lab Patient resulted labs reviewed. Assessment/Plan Assessment and Plan Assess & Plan/Chief Complaint Acute psychosis Schizophrenia Antipsychotics as needed Continue home meds SW following Planning for transfer involuntary to inpatient psychiatry once bed available E coli UTI Macrobid Alcohol abuse Stable No evidence of withdrawal Atarax overdose, resolved Diagnosis/Problems Diagnosis/Problems (1) Schizophrenia Status: Acute Qualifiers: Schizophrenia type: paranoid schizophrenia Qualified Codes: F20.0 - Paranoid schizophrenia (2) Psychosis Status: Acute Qualifiers: Psychosis type: unspecified psychosis type Qualified Codes: F29 - Unspecified psychosis not due to a substance or known physiological condition (3) Drug overdose Status: Acute Qualifiers: Encounter type: initial encounter Injury intent: undetermined intent Qualified Codes: T50.904A - Poisoning by unspecified drugs, medicaments and biological substances, undetermined, initial encounter (4) Alcohol abuse Status: Chronic TONIE GASTELUM MD Aug 14, 2022 18:34
[2022-08-14 19:36] VITALS: BP 138/91
[2022-08-14] MEDS: ACETAMINOPHEN 325 MG TABLET PO PRN (21:13)
[2022-08-14] MEDS: OLANZapine 5 MG ODT (ZyPREXA ZYDIS) PO SCH (21:13)
[2022-08-15] VITALS (8 sets, daily range): BP systolic 110–141; BP diastolic 72–92
[2022-08-15] MEDS: NICOTINE PATCH REMOVAL TP SCH (09:37)
[2022-08-15] MEDS: NICOTINE 21 MG (NICODERM) PATCH TD SCH (09:38)
[2022-08-15] MEDS: NITROFURANTOIN 100 MG (MACROBID) CAPSULE PO SCH ×2 (09:38→19:53)
[2022-08-15] MEDS: ACETAMINOPHEN 325 MG TABLET PO PRN ×3 (09:40→19:53)
--- NOTE | 2022-08-15 17:16 | Progress Note - Hospitalist ---
Subjective HPI/CC On Admission Date Seen by Provider: Aug 15, 2022 Time Seen by Provider: 10:55 Cassidy Martino is a 41 year old female with history of schizophrenia who presented with psychosis. She says she has a "bug in my ear". She says it is telling her things. It is not commanding her to do things though. She also thinks the [place] is trying to take her family to [place]. She thinks someone is going to force them into pornography. She has no pain. She is not short of breath. She is otherwise in her normal state of health. She tried to harm her and the EMS officers. She also may have overdosed on Atarax. Subjective/Events-last exam She says she is no longer having hallucinations. She has no other complaiints. Objective Exam Vital Signs Vital Signs Date Time Temp Pulse Resp B/P (MAP) Pulse Ox O2 Delivery O2 Flow Rate FiO2 08/15/22 15:34 36.4 67 16 139/81 (100) 100 Room Air Capillary Refill : Less Than 3 Seconds General Appearance: No Apparent Distress, WD/WN Respiratory: Lungs Clear, No Respiratory Distress Gastrointestinal: Normal Bowel Sounds, Soft Extremity: Normal Inspection, No Pedal Edema Neurologic/Psychiatric: Alert, Normal Mood/Affect Results/Procedures Lab Patient resulted labs reviewed. Assessment/Plan Assessment and Plan Assess & Plan/Chief Complaint Acute psychosis Schizophrenia Antipsychotics as needed Continue home meds SW following Awaiting placement, possibly repeat screen Wednesday E coli UTI Macrobid Alcohol abuse Stable No evidence of withdrawal Atarax overdose, resolved Diagnosis/Problems Diagnosis/Problems (1) Schizophrenia Status: Acute Qualifiers: Schizophrenia type: paranoid schizophrenia Qualified Codes: F20.0 - Paranoid schizophrenia (2) Psychosis Status: Acute Qualifiers: Psychosis type: unspecified psychosis type Qualified Codes: F29 - Unspecified psychosis not due to a substance or known physiological condition (3) Drug overdose Status: Acute Qualifiers: Encounter type: initial encounter Injury intent: undetermined intent Qualified Codes: T50.904A - Poisoning by unspecified drugs, medicaments and biological substances, undetermined, initial encounter (4) Alcohol abuse Status: Chronic (5) UTI (urinary tract infection) Status: Acute TONIE GASTELUM MD Aug 15, 2022 17:16
[2022-08-15] MEDS: OLANZapine 5 MG ODT (ZyPREXA ZYDIS) PO SCH (19:53)
[2022-08-16 03:47] VITALS: BP 131/84
[2022-08-16] MEDS: ACETAMINOPHEN 325 MG TABLET PO PRN ×3 (03:48→22:07)
[2022-08-16 07:19] VITALS: BP 130/84
[2022-08-16] MEDS: NICOTINE 21 MG (NICODERM) PATCH TD SCH (08:43)
[2022-08-16] MEDS: NITROFURANTOIN 100 MG (MACROBID) CAPSULE PO SCH ×2 (08:43→22:07)
[2022-08-16] MEDS: NICOTINE PATCH REMOVAL TP SCH (08:43)
[2022-08-16 11:30] VITALS: BP 125/83
--- NOTE | 2022-08-16 14:12 | Progress Note - Hospitalist ---
Subjective HPI/CC On Admission Date Seen by Provider: Aug 16, 2022 Time Seen by Provider: 11:10 Cassidy Martino is a 41 year old female with history of schizophrenia who presented with psychosis. She says she has a "bug in my ear". She says it is telling her things. It is not commanding her to do things though. She also thinks the [place] is trying to take her family to [place]. She thinks someone is going to force them into pornography. She has no pain. She is not short of breath. She is otherwise in her normal state of health. She tried to harm her and the EMS officers. She also may have overdosed on Atarax. Subjective/Events-last exam She is feeling well. She is not having any more hallucinations. She acknowledges that she was previously but this has resolved. She thinks this may have been due to something in a "gummy" someone gave her, along with not taking her medication. Objective Exam Vital Signs Vital Signs Date Time Temp Pulse Resp B/P (MAP) Pulse Ox O2 Delivery O2 Flow Rate FiO2 08/16/22 11:30 36.6 89 18 125/83 (97) 99 Room Air Capillary Refill : Less Than 3 Seconds General Appearance: No Apparent Distress, WD/WN Respiratory: Lungs Clear, No Respiratory Distress Cardiovascular: Regular Rate, Rhythm, No Murmur Gastrointestinal: Normal Bowel Sounds, Soft Extremity: Normal Inspection, No Pedal Edema Neurologic/Psychiatric: Alert, Normal Mood/Affect Skin: Normal Color, Warm/Dry Results/Procedures Lab Patient resulted labs reviewed. Assessment/Plan Assessment and Plan Assess & Plan/Chief Complaint Schizophrenia Antipsychotics as needed Continue home meds SW following Consider re-screening tomorrow, hallucinations now resolved E coli UTI Macrobid Alcohol abuse Stable No evidence of withdrawal Acute psychosis, resolved Atarax overdose, resolved Diagnosis/Problems Diagnosis/Problems (1) Schizophrenia Status: Acute Qualifiers: Schizophrenia type: paranoid schizophrenia Qualified Codes: F20.0 - Paranoid schizophrenia (2) Psychosis Status: Acute Qualifiers: Psychosis type: unspecified psychosis type Qualified Codes: F29 - Unspecified psychosis not due to a substance or known physiological condition (3) Drug overdose Status: Acute Qualifiers: Encounter type: initial encounter Injury intent: undetermined intent Q ualified Codes: T50.904A - Poisoning by unspecified drugs, medicaments and biological substances, undetermined, initial encounter (4) Alcohol abuse Status: Chronic (5) UTI (urinary tract infection) Status: Acute TONIE GASTELUM MD Aug 16, 2022 14:12
[2022-08-16 15:33] VITALS: BP 142/86
[2022-08-16 20:16] VITALS: BP 135/79
[2022-08-16] MEDS: OLANZapine 5 MG ODT (ZyPREXA ZYDIS) PO SCH (22:07)
[2022-08-16 23:58] VITALS: BP 107/74
[2022-08-17 03:38] VITALS: BP 109/62
[2022-08-17 08:17] VITALS: BP 112/76
[2022-08-17] MEDS: NICOTINE 21 MG (NICODERM) PATCH TD SCH (08:28)
[2022-08-17] MEDS: ACETAMINOPHEN 325 MG TABLET PO PRN (08:28)
[2022-08-17] MEDS: NITROFURANTOIN 100 MG (MACROBID) CAPSULE PO SCH (08:28)
[2022-08-17] MEDS: NICOTINE PATCH REMOVAL TP SCH (08:29)
[2022-08-17] MEDS ORDERED: OLAN5TAB23 PO ×2 (09:35→13:33)
--- NOTE | 2022-08-17 09:36 | Discharge Inst-Simple/Standard ---
Discharge Inst-Standard Discharge Medications New, Converted or Re-Newed RX: Transmitted to Pharmacy Patient Instructions/Follow Up Plan of Care/Instructions/FU: Please continue to take your medications as written. Please follow up with your primary care doctor to follow up this hospital stay. Activity as Tolerated: Yes Discharge Diet: No Restrictions Return to The Hospital For: Chest pain, confusin, anxiety, shortness of breath, fever, weakness, if you feel you are getting worse. ALLAN LIVE MD Aug 17, 2022 09:36
--- NOTE | 2022-08-17 11:23 | Discharge Summary ---
Diagnosis/Chief Complaint Date of Admission Aug 12, 2022 at 00:37 Date of Discharge Discharge Date: Aug 17, 2022 Admission Diagnosis Acute psychosis Primary Care No,Local Physician Discharge Diagnosis (1) Schizophrenia Status: Acute (2) Psychosis Status: Acute (3) Drug overdose Status: Acute (4) Alcohol abuse Status: Chronic (5) UTI (urinary tract infection) Status: Acute Discharge Summary Discharge Physical Exam Allergies: Coded Allergies: diphenhydramine (Unverified Adverse Reaction, Unknown, 03/02/22) Vitals & I&Os Vital Signs Date Time Temp Pulse Resp B/P (MAP) Pulse Ox O2 Delivery O2 Flow Rate FiO2 08/17/22 12:50 36.8 83 18 127/88 (101) 100 Room Air Hospital Course Labs (last 24 hrs) Microbiology 08/12/22 MRSA Screen - Final, Complete MRSA not isolated 08/11/22 Urine Culture - Final, Complete Escherichia coli Patient resulted labs reviewed. Discharge Home Medications: Active Scripts Active Olanzapine Odt (Olanzapine) 5 Mg Tab.rapdis 5 Mg PO HS Reported Fluoxetine HCl 20 Mg Capsule 20 Mg PO DAILY Hydroxyzine HCl 50 Mg Tablet 50 Mg PO BID Instructions to patient/family Please see electronic discharge instructions given to patient. Problem Qualifiers (1) Schizophrenia: Schizophrenia type: paranoid schizophrenia Qualified Codes: F20.0 - Paranoid schizophrenia (2) Psychosis: Psychosis type: unspecified psychosis type Qualified Codes: F29 - Unspecified psychosis not due to a substance or known physiological condition (3) Drug overdose: Encounter type: initial encounter Injury intent: undetermined intent Qualified Codes: T50.904A - Poisoning by unspecified drugs, medicaments and biological substances, undetermined, initial encounter ALLAN LIVE MD Aug 17, 2022 11:23
--- NOTE | 2022-08-17 11:47 | Discharge Summary ---
Diagnosis/Chief Complaint Date of Admission Aug 12, 2022 at 00:37 Date of Discharge Discharge Date: Aug 17, 2022 Admission Diagnosis Acute psychosis Primary Care No,Local Physician Discharge Diagnosis (1) Schizophrenia Status: Acute (2) Psychosis Status: Acute (3) Drug overdose Status: Acute (4) Alcohol abuse Status: Chronic (5) UTI (urinary tract infection) Status: Acute Discharge Summary Discharge Physical Exam Allergies: Coded Allergies: diphenhydramine (Unverified Adverse Reaction, Unknown, 03/02/22) Vitals & I&Os Vital Signs Date Time Temp Pulse Resp B/P (MAP) Pulse Ox O2 Delivery O2 Flow Rate FiO2 08/17/22 12:50 36.8 83 18 127/88 (101) 100 Room Air General Appearance: No Apparent Distress, Thin Cardiovascular: Regular Rate, Rhythm, No Murmur Neurologic/Psychiatric: Alert, Oriented x3 Hospital Course Patient was admitted to the hospital secondary to acute psychosis. She had been noncompliant with her medications for paranoid schizophrenia. She was restarted on her normal medications and did very well. Originally she was screened and for involuntary placement at [facility]. They did not have a bed available for over 5 days and she was rescreened and was able to be discharged home as her acute issue had resolved and was stabilized on her medications. She has follow-up with her primary care provider to follow-up this hospital stay. Labs (last 24 hrs) Microbiology 08/12/22 MRSA Screen - Final, Complete MRSA not isolated 08/11/22 Urine Culture - Final, Complete Escherichia coli Patient resulted labs reviewed. Discussion & Recommendations Discharge Planning: >30 minutes discharge planning Discharge Home Medications: Active Scripts Active Olanzapine Odt (Olanzapine) 5 Mg Tab.rapdis 5 Mg PO HS Reported Fluoxetine HCl 20 Mg Capsule 20 Mg PO DAILY Hydroxyzine HCl 50 Mg Tablet 50 Mg PO BID Instructions to patient/family Please see electronic discharge instructions given to patient. Problem Qualifiers (1) Schizophrenia: Schizophrenia type: paranoid schizophrenia Qualified Codes: F20.0 - Paranoid schizophrenia (2) Psychosis: Psychosis type: unspecified psychosis type Qualified Codes: F29 - Unspecified psychosis not due to a substance or known physiological condition (3) Drug overdose: Encounter type: initial encounter Injury intent: undetermined intent Qualified Codes: T50.904A - Poisoning by unspecified drugs, medicaments and biological substances, undetermined, initial encounter ALLAN LIVE MD Aug 17, 2022 11:47
[2022-08-17 12:50] VITALS: BP 127/88
[2022-08-17 13:32] VITALS: BP 127/88
== END 2022-08-17 13:25 | disposition home or self-care (01) | DRG 885 ==
LOC: EDUNIT# 18:37 → ER FS 18:38 → EEVIPCON 08-12 00:37 → ICU 08-12 00:37 → 4TH 08-14 14:53
PROVIDERS: ADMIT Internal Medicine; ATTEND Family Medicine
DX: F20.0 Paranoid schizophrenia (principal); N39.0 Urinary tract infection, site not specified; T43.592A Poisoning by other antipsychotics and neuroleptics, intentional self-harm, initial encounter; F10.10 Alcohol abuse, uncomplicated; Y90.0 Blood alcohol level of less than 20 mg/100 ml; D69.6 Thrombocytopenia, unspecified; B96.20 Unspecified Escherichia coli [E. coli] as the cause of diseases classified elsewhere; T43.596A Underdosing of other antipsychotics and neuroleptics, initial encounter; T43.226A Underdosing of selective serotonin reuptake inhibitors, initial encounter; Z91.138 Patient's unintentional underdosing of medication regimen for other reason; Z28.310 Unvaccinated for COVID-19; Z28.9 Immunization not carried out for unspecified reason; Z88.8 Allergy status to other drugs, medicaments and biological substances
CPT/HCPCS: 36415; 51702; 80053; 80306; 80320; 80329; 81000; 82550; 82947; 83036; 83735; 84100; 84703; 85025; 87077; 87081; 87088; 87186; 93005; 93041